=== PATIENT | female | born 1995 | race Caucasian/White ===

== ENCOUNTER → 2018-04-12 | Outpatient (CLI) | payer BC ==
--- NOTE | ~2018-04-12 | 2DMMODE ---
[facility] [address] [place] [address] 2 D/M-MODE ECHOCARDIOGRAM Name: ROXI RAMIREZ Room #: REG [facility]#: [id number] Admission: 04/12/18 Attend Phys: Romulo Green MD Discharge: Date of : 89 Date of Service: 04/12/18 1401 Report #: [id number] THIS REPORT FOR: //name// APPROVED REPORT Study performed: 04/12/2018 12:58:34 EXAM: Comprehensive 2D, Doppler, and color-flow Echocardiogram Patient Location: Echo lab BSA: 1.93 HR: 95 bpm BP: 130/78 mmHg Other Information Study Quality: Good Indications Palpitations 2D Dimensions RVDd: 26.46 mm LVEF(%): 60.72 (>50%) IVSd: 6.22 (7-11mm) LVDd: 42.72 mm PWd: 6.88 (7-11mm) Ascending Ao: 22.15 (22-36mm) LVDs: 28.97 (25-40mm) Aortic Root: 25.80 mm IVC: 1.40 mm Burch's LVEF: 60.72 % Volumes Left Atrial Volume (Systole) Single Plane 4CH: 26.35 mL Single Plane 2CH: 50.85 mL LA ESV Index: 20.00 mL/m2 Aortic Valve AoV Peak Enoc.: 1.40 m/s AO Peak Gr.: 7.80 mmHg LVOT Max P.94 mmHg LVOT Max V: 1.11 m/s Mitral Valve E/A Ratio: 1.3 MV Decel. Time: 159.10 ms MV E Max Enoc.: 0.65 m/s MV A Enoc.: 0.51 m/s MV PHT: 46.14 ms [facility] [address] [place] [address] 2 D/M-MODE ECHOCARDIOGRAM Name: ROXI RAMIREZ MISTY Room #: REG [facility]#: [id number] Admission: 04/12/18 Attend Phys: Romulo Green MD Discharge: Date of : 89 Date of Service: 04/12/18 1401 Report #: [id number] IVRT: 114.19 ms Pulmonary Valve PV Peak Enoc.: 1.20 m/s PV Peak Gr.: 5.74 mmHg Pulmonary Vein P Vein S: 0.60 m/s P Vein A: 0.60 m/s P Vein D: 0.67 m/s P Vein S/D Ratio: 0.90 Tricuspid Valve RAP Estimate: 5.00 mmHg Left Ventricle The left ventricle is normal size. There is normal LV segmental wall motion. There is normal left ventricular wall thickness. The left ventricular systolic function is normal. LVEF is 55-60%. The left ventricular diastolic function is normal. Right Ventricle The right ventricle is normal size. The right ventricular systolic function is normal. Atria The left atrium size is normal. The right atrium size is normal. Aortic Valve The aortic valve is normal in structure. No aortic regurgitation is present. There is no aortic valvular stenosis. Mitral Valve The mitral valve is normal in structure. There is no mitral valve regurgitation noted. No evidence of mitral valve stenosis. Tricuspid Valve The tricuspid valve is normal in structure. There is no tricuspid valve regurgitation noted. Unable to assess PA pressure. Pulmonic Valve The pulmonary valve is normal in structure. Trace pulmonic regurgitation. Great Vessels The aortic root is normal in size. IVC is normal in size and collapses with >50% inspiration [facility] [address] [place] [address] 2 D/M-MODE ECHOCARDIOGRAM Name: ROXI RAMIREZ Room #: REG [facility].#: [id number] Admission: 04/12/18 Attend Phys: Romulo Green MD Discharge: Date of : 89 Date of Service: 04/12/18 1401 Report #: [id number] Pericardium There is no pericardial effusion. <Conclusion> The left ventricle is normal size. There is normal left ventricular wall thickness. The left ventricular systolic function is normal. The left ventricular diastolic function is normal. The right ventricle is normal size. The left atrium size is normal. The aortic valve is normal in structure. There is no mitral valve regurgitation noted. There is no tricuspid valve regurgitation noted. <ELECTRONICALLY SIGNED> By: Romulo Green MD 04/12/18 1401 140 140 Romulo Green MD /INF
== END ==
LOC: CV 10:43
DX: E87.6 Hypokalemia (principal); R94.31 Abnormal electrocardiogram [ECG] [EKG]; E83.42 Hypomagnesemia; Z87.898 Personal history of other specified conditions